=== PATIENT | female | born 1940 ===

== ENCOUNTER 2022-01-02 09:50 | Outpatient (CLI) | payer MEDICARE, OTHER ==
[2022-01-02] MEDS ORDERED: lidocaine 1% 20 ML MDV ONE (10:07)
[2022-01-02] MEDS ORDERED: LIDOCAINE 1%-EPI 1:100000 20 ML MDV ONE (10:08)
--- NOTE | 2022-01-02 17:35 | Ultrasound Report ---
LIMITED ULTRASOUND OF RIGHT BREAST: 01/02/2022 CLINICAL: Patient returns today to evaluate a density in the right breast. Comparison is made to exams dated: 10/25/2021 mammogram, 10/25/2021 ultrasound, 10/11/2021 mammogram, mammogram, and 12/02/2014 mammogram - [facility]. Color flow ultrasound of the right breast 10 o'clock region was performed. Ty scale images of the real-time examination were reviewed. There is a 1.1 cm x 1.1 cm x 0.7 cm area of subtle shadowing in the right breast at 11 o'clock beef boner ior depth 3 cm from the nipple. IMPRESSION: PROBABLY BENIGN No shadowing in the area of previously described mass as seen on prior ultrasound, no significant abn ormality is identified. There is an area of subtle shadowing which does not appear masslike and is le ss conspicuous and smaller compared to the prior outside ultrasound. Given the lack of a target, ultr asound-guided biopsy will not be performed. I discussed the findings with the patient and she will re turn in 6 months for repeat ultrasound and also will return if she notices any palpable abnormality i n the interim. A follow-up right ultrasound in 6 months is recommended to demonstrate stability. This exam was interpreted at Station ID: [id number]. Electronically Signed By: Romain Walker acr/:01/02/2022 12:03:16 Ultrasound BI-RADS: 3 Probably benign BI-RADS CATEGORY: (3) - 3 Ultrasound [id number] 6 month follow-up LATERALITY: (R)
== END 2022-01-02 09:51 | disposition home or self-care (01) ==
LOC: DI 09:50
PROVIDERS: ATTEND Nurse Practitioner Obstetrics & Gynecology
DX: R92.8 Other abnormal and inconclusive findings on diagnostic imaging of breast (principal)

== ENCOUNTER 2022-08-20 08:44 | Outpatient (CLI) | payer MEDICARE, OTHER ==
--- NOTE | 2022-08-21 14:10 | Ultrasound Report ---
LIMITED ULTRASOUND OF RIGHT BREAST: 08/20/2022 CLINICAL: Patient returns for a 6 month follow up of the right breast. Comparison is made to exams dated: 01/02/2022 ultrasound - [facility], 10/25/2021 ma mmogram, 10/25/2021 ultrasound, 10/11/2021 mammogram, 01/21/2019 mammogram, and 12/02/2014 mammogram - [facility]. Color flow ultrasound of the right breast 10 o'clock region was performed. Ty scale images of the real-time examination were reviewed. Previously described hypoechoic ill define area is unchanged from prior study. No associated shadowin g or increased vascularity. IMPRESSION: INCOMPLETE: NEEDS ADDITIONAL IMAGING EVALUATION Previously described area of hypoechoic tissue in the right breast without shadowing or increased vas cularity is unchanged. It is recommended that the patient undergo a follow-up mammogram at this time in order to evaluate the area of architectural distortion seen on most recent mammographic studies. This exam was interpreted at Station ID: [id number]. Electronically Signed By: Rajan Skelton M.D. jr/:08/20/2022 13:48:39 Ultrasound BI-RADS: 0 Indeterminate BI-RADS CATEGORY: (0) - 0 RECOMMENDATION: (ADDMAM) - Recommend additional mammographic views. [id number] Immediate follow-up LATERALITY: (B)
== END 2022-08-20 08:45 | disposition home or self-care (01) ==
LOC: DI 08:44
PROVIDERS: ATTEND Nurse Practitioner Obstetrics & Gynecology
DX: R92.8 Other abnormal and inconclusive findings on diagnostic imaging of breast (principal)

== ENCOUNTER 2022-10-23 10:50 | Outpatient (CLI) | payer MEDICARE, OTHER ==
--- NOTE | 2022-10-24 09:32 | Mammography Report ---
BILATERAL DIGITAL DIAGNOSTIC MAMMOGRAM 3D/2D: 10/23/2022 CLINICAL: Short term follow up of the right breast, due for bilateral imaging. Comparison is made to exams dated: 08/20/2022 ultrasound, 01/02/20[address] ultrasound - [facility], 10/25/2021 mammogram, 10/11/2021 mammogram, 01/21/2019 mammogram, and 12/02/2014 mammogram - [facility]. Both breasts are heterogeneously dense, which may obscure small masses (category c / 51-75% glandular tissue). There is architectural distortion in the right breast at 12 o'clock middle depth. This is more promi nent. No other significant masses, calcifications, or other findings are seen in either breast. No clear sonographic correlate on prior imaging. IMPRESSION: SUSPICIOUS OF MALIGNANCY The architectural distortion in the right breast is at a moderate suspicion for malignancy. A stereo tactic biopsy is recommended. Based on the Tyrer Cuzick model (a risk assessment model) the patients lifetime risk is 0.4% and her 10 year risk is 0.0%. According to the ACR, ACS, and NCCN guidelines, an annual breast MRI exam slime g with mammogram is recommended if the patients lifetime risk is 20% or greater. This exam was interpreted at Station ID: [id number]. NOTE: For mammograms, a report in lay terms will be sent to the patient. Approximately 15% of breast malignancies will not be visualized mammographically. In the management of a palpable breast mass, a negative mammogram must not discourage biopsy of a clinically suspicious lesion. Electronically Signed By: Jarek Loung M.D. lc/:10/23/2022 12:04:30 ACR BI-RADS Category 4b: Suspicious abnormality - intermediate suspicion of malignancy 3344F PARENCHYMAL PATTERN: (D) - The breast(s) demonstrate(s) heterogeneously dense fibroglandular parmary kate mahmood. BI-RADS CATEGORY: (4b) - Mod Susp Biopsy follow-up [id number] Immediate follow-up LATERALITY: (B)
== END 2022-10-23 10:51 | disposition home or self-care (01) ==
LOC: DI 10:50
PROVIDERS: ATTEND Nurse Practitioner Obstetrics & Gynecology
DX: R92.8 Other abnormal and inconclusive findings on diagnostic imaging of breast (principal)

== ENCOUNTER 2023-05-28 09:16 | Outpatient (CLI) | payer MEDICARE, OTHER ==
--- NOTE | 2023-05-28 12:23 | Mammography Report ---
UNILATERAL RIGHT DIGITAL DIAGNOSTIC MAMMOGRAM 3D/2D: 05/28/2023 CLINICAL: Patient returns for a 6 month follow up of the right breast. Comparison is made to exams dated: 10/23/2022 mammogram - [facility], 10/25/2021 jesse mogram, 10/25/2021 ultrasound, 10/11/2021 mammogram, 01/21/2019 mammogram, and 12/02/2014 mammogram - [facility]. The right breast is heterogeneously dense, which may obscure small masses (category c / 51-75% glandu lar tissue). There is irregular equal density asymmetry and architectural distortion with a spiculated margin in t he right breast at 11 o'clock middle depth. This is seen in additional views. This is more prominen t. No other significant masses or calcifications are seen in the breast. IMPRESSION: INCOMPLETE: NEEDS ADDITIONAL IMAGING EVALUATION The irregular equal density architectural distortion in the right breast is suspicious, worse compare d to remote prior exams. An ultrasound is recommended. If this area is not visible by ultrasound, st ereotactic biopsy is recommended. Ultrasound was performed immediately following this exam. This exam was interpreted at Station ID: [id number]. NOTE: For mammograms, a report in lay terms will be sent to the patient. Approximately 15% of breast malignancies will not be visualized mammographically. In the management of a palpable breast mass, a negative mammogram must not discourage biopsy of a clinically suspicious lesion. Electronically Signed By: Becky carpenter/:05/28/2023 10:17:48 ACR BI-RADS Category 0: Incomplete 3340F PARENCHYMAL PATTERN: (D) - The breast(s) demonstrate(s) heterogeneously dense fibroglandular parhermilay ma. BI-RADS CATEGORY: (0) - 0 Ultrasound [id number] Immediate follow-up LATERALITY: (B)
--- NOTE | 2023-05-28 12:23 | Ultrasound Report ---
LIMITED ULTRASOUND OF RIGHT BREAST AND AXILLA: 05/28/2023 CLINICAL: Patient returns today to evaluate an architectural distortion in the right breast. Comparison is made to exams dated: 10/23/2022 mammogram, 08/20/20[address] ultrasound - [facility], 10/25/2021 mammogram - [facility], and 01/02/2022 ultrasound - [facility]. Color flow ultrasound of the right breast 10-11 o'clock, and axilla regions was performed. Ty scal e images of the real-time examination were reviewed. There is a 0.7 cm x 0.7 cm x 0.6 cm irregular mass with an indistinct, angular, and spiculated margin in the right breast at 10 o'clock middle depth 5 cm from the nipple. This irregular mass is hypoech oic with posterior acoustic shadowing. This abnormality is increased in size and correlates with jesse mography findings. It is palpable per technologist. Color flow imaging demonstrates that there is no vascularity present. No significant abnormalities were seen sonographically in the right axilla. IMPRESSION: SUSPICIOUS OF MALIGNANCY The 0.7 cm x 0.7 cm x 0.6 cm irregular mass in the right breast corresponds to the mammogram finding, and is at a high suspicion for malignancy. An ultrasound guided biopsy is recommended. Findings an d recommendations were discussed with the patient in person by Dr. Sinan Martinez at time of exam. This exam was interpreted at Station ID: [id number]. Electronically Signed By: Becky carpenter/:05/28/2023 10:46:12 Ultrasound BI-RADS: 4c High suspicion of malignancy BI-RADS CATEGORY: (4c) - High Susp Biopsy [id number] Immediate follow-up LATERALITY: (R)
== END 2023-05-28 09:17 | disposition home or self-care (01) ==
LOC: DI 09:16
PROVIDERS: ATTEND Internal Medicine
DX: N63.11 Unspecified lump in the right breast, upper outer quadrant (principal)

== ENCOUNTER 2023-07-14 12:25 | Outpatient (CLI) | payer MEDICARE, OTHER ==
[2023-07-14] MEDS ORDERED: LIDOCAINE-MPF 1% 5 ML VIAL ONE (12:28)
[2023-07-14] MEDS ORDERED: LIDOCAINE 1%-EPI 1:100000 50 ML VIAL ONE (12:29)
[2023-07-14] MEDS ORDERED: LIDOCAINE-MPF 1% 5 ML VIAL TD ONE (14:02)
[2023-07-14] MEDS ORDERED: LIDOCAINE 1%-EPI 1:100000 50 ML VIAL SUBQ ONE (15:00)
--- NOTE | 2023-07-15 12:19 | Mammography Report ---
UNILATERAL RIGHT DIGITAL DIAGNOSTIC MAMMOGRAM POST-PROCEDURE IMAGING FOR MARKER PLACEMENT: 07/14/2023 CLINICAL: Post right breast ultrasound biopsy clip placement imaging. Comparison is made to exams dated: 05/28/2023 mammogram, 10/23/2022 mammogram - [facility], 10/25/2021 mammogram, 10/11/2021 mammogram, 01/21/2019 mammogram, and 12/02/2014 mammogram - [facility]. The right breast is heterogeneously dense, which may obscure small masses (category c / 51-75% glandu lar tissue). There is a marker clip in the appropriate position in the right breast at 11 o'clock middle depth. T his marker clip placement is at the biopsy site. IMPRESSION: POST PROCEDURE MAMMOGRAM FOR MARKER PLACEMENT There was a successful marker clip placement in the right breast middle depth. This exam was interpreted at Station ID: [id number]. NOTE: For mammograms, a report in lay terms will be sent to the patient. Approximately 15% of breast malignancies will not be visualized mammographically. In the management of a palpable breast mass, a negative mammogram must not discourage biopsy of a clinically suspicious lesion. Electronically Signed By: Sinan vega/penrad:07/14/2023 16:51:24 ACR BI-RADS Category Post-procedure mammogram for marker placement PARENCHYMAL PATTERN: (D) - The breast(s) demonstrate(s) heterogeneously dense fibroglandular parhermilay ma. BI-RADS CATEGORY: () - RECOMMENDATION: (ADDMAM) - Recommend additional mammographic views. recall n/a LATERALITY: (B)
--- NOTE | 2023-07-16 09:41 | Ultrasound Report ---
ULTRASOUND GUIDED BIOPSY RIGHT BREAST USING VACUUM DEVICE WITH MARKING DEVICE INSERTED AND POST MAMMO GRAPHIC IMAGIN07/14/2023 CLINICAL: Right breast mass. PATIENT CONSENT: Risks (minor bleeding, infection, vasovagal reaction and repeat procedure), benefits and alternatives were explained to the patient and written informed consent was obtained. Correlation is made to exams dated: 05/28/2023 ultrasound, 05/28/2023 mammogram, 10/23/2022 mammogram , 08/20/2022 ultrasound, 01/02/2022 ultrasound - [facility], and 10/25/2021 mammogram - [facility]. An ultrasound guided biopsy using real-time ultrasound was performed for the mass located in the righ t breast at 10 o'clock, 5 cm from the nipple. The skin was prepped in the usual manner. Local anest hetic was administered to the access site. A skin arabella was made in the breast. The abnormality was approached from the lateral aspect. A 13 gauge biopsy needle was placed adjacent to the abnormality under ultrasound guidance. Once the needle was documented to be in the correct location, four specim ens were obtained using the Mammotome biopsy system. A clip was inserted into the biopsy cavity. A sterile dressing was applied to the access site. Post procedure mammographic imaging demonstrates th e biopsy clip at the targeted area. The specimens were sent to the laboratory for pathological duncan sis. IMPRESSION: ULTRASOUND GUIDED BIOPSY MALIGNANT Ultrasound guided biopsy of the mass in the right breast at 10 o'clock, 5 cm from the nipple was succ essful. Ultrasound guided biopsy was performed by Dr. Sinan Martinez. 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 Pathology results are concordant with imaging findings. A surgical/oncologic consultation is recommended. This exam was interpreted at Station ID: [id number]. Hortencia Murray M.D., PH.D eb/:07/16/2023 09:20:30 BI-RADS CATEGORY: () - Unspecified - other recall n/a LATERALITY: (B)
== END 2023-07-14 12:26 | disposition home or self-care (01) ==
LOC: DI 12:25
PROVIDERS: ATTEND Internal Medicine
DX: C50.411 Malignant neoplasm of upper-outer quadrant of right female breast (principal); Z17.0 Estrogen receptor positive status [ER+]
CPT/HCPCS: 19083; 77065; J3490

== ENCOUNTER 2023-11-03 08:10 | Day surgery (SDC) | payer MEDICARE, OTHER ==
[2023-11-03] MEDS ORDERED: ceFAZolin 2 GM VIAL ONE (08:33)
[2023-11-03] MEDS: ALPRAZolam 0.25 MG TABLET PO ONE (08:35)
[2023-11-03] MEDS: ACETAMINOPHEN 500 MG TABLET PO ONE (08:35)
[2023-11-03] MEDS: LACTATED RINGERS 1,000 ML IV ONE (08:40)
[2023-11-03] MEDS ORDERED: LIDOCAINE-MPF 1% 5 ML VIAL ONE (09:16)
[2023-11-03] MEDS ORDERED: LIDOCAINE 1%-EPI 1:100000 20 ML MDV ONE ×2 (09:17→10:08)
[2023-11-03] MEDS ORDERED: BUPIVACAINE 0.5% PF 10 ML VIAL ONE (10:08)
[2023-11-03] MEDS ORDERED: NALOXONE 0.4 MG/ML VIAL IVP PRN (10:23)
[2023-11-03] MEDS ORDERED: ePHEDrine 50 MG/ML VIAL IVP PRN (10:23)
[2023-11-03] MEDS ORDERED: fentaNYL 100 MCG/2 ML VIAL IVP PRN (10:23)
[2023-11-03] MEDS ORDERED: HYDROmorphone 0.5 MG/0.5 ML SYRINGE IVP PRN ×2 (10:23→14:24)
[2023-11-03] MEDS ORDERED: ATROPINE ABBOJECT 1 MG/10 ML SYRINGE IVP PRN (10:23)
[2023-11-03] MEDS ORDERED: METOCLOPRAMIDE 10 MG/2 ML VIAL IVP PRN (10:23)
[2023-11-03] MEDS ORDERED: MORPHINE 2 MG/ML CARPUJECT IVP PRN (10:23)
[2023-11-03] MEDS ORDERED: ONDANSETRON 4 MG/2 ML VIAL IVP PRN ×2 (10:23→14:24)
--- NOTE | 2023-11-03 10:23 | ANESTHESIA ---
Pre-Anesthesia VS, & Labs - Diagnosis IDC - Procedure wire loc, excision of IDC Vital Signs: Temp Pulse Resp BP Pulse Ox O2 Flow Rate 36.7 C 88 18 176/80 H 99 11/03/23 08:42 11/03/23 08:42 11/03/23 08:42 11/03/23 08:42 11/03/23 08:42 Height: 5 ft 3 in Weight (kg): 68.04 kg Body Mass Index: 26.5 BMI Classification: Overweight - NPO >8 hours - Is Patient ?: No Home Medications and Allergies Home Medications: Ambulatory Orders No Known Home Medications 10/27/23 No Known Home Medications 10/27/23 Allergies/Adverse Reactions: Allergies Allergy/AdvReac Type Severity Reaction Status Date / Time No Known Drug Allergies Allergy Verified 11/03/23 09:06 Anes History & Medical History - Anesthetic History Anesthesia Complications: reports: No previous complications Family history of Anesthesia Complications: Denies Family history of Malignant Hyperthermia: Denies - Medical History Cardiovascular: reports: None Pulmonary: reports: None Gastrointestinal: reports: None Urinary: reports: None Musculoskeletal: reports: Osteoarthritis Psychosocial: reports: No issues indicated History of Cancer?: Yes Exam General: Alert, Oriented x3, Cooperative Dental: WNL Mouth Openin Fingerbreadth Neck Mobility: Normal Mallampati classification: II Thyromental Distance: 4-6 cm Respiratory: Lungs clear Cardiovascular: Regular rate Plan Anesthesia Type: General Consent for Procedure(s) Verified and Reviewed: Yes Code Status: Attempt Resuscitation ASA classification: 3-Severe systemic disease Is this case an emergency?: No
[2023-11-03] MEDS ORDERED: LACTATED RINGERS 1,000 ML IV SCH (11:00)
[2023-11-03] MEDS ORDERED: PROPOFOL 200 MG/20 ML VIAL IVP ONE (12:06)
[2023-11-03] MEDS ORDERED: LIDOCAINE-PF 2% 10 ML AMP SUBQ ONE (12:06)
[2023-11-03] MEDS ORDERED: fentaNYL 100 MCG/2 ML VIAL ONE (12:06)
[2023-11-03] MEDS ORDERED: MIDAZOLAM 2 MG/2 ML VIAL ONE (12:06)
[2023-11-03] MEDS ORDERED: DEXAMETHASONE 4 MG/ML VIAL ONE (12:07)
[2023-11-03] MEDS: LIDOCAINE-MPF 1% 5 ML VIAL TD ONE (12:14)
[2023-11-03] MEDS ORDERED: ePHEDrine 50 MG/ML VIAL IVP ONE (12:59)
[2023-11-03] MEDS: BUPIVACAINE 0.5% PF 30 ML VIAL INFIL ONE ×2 (13:41)
[2023-11-03] MEDS: LIDOCAINE 1%-EPI 1:100000 50 ML VIAL SUBQ ONE ×2 (13:41)
[2023-11-03] MEDS: LACTATED RINGERS 100 ML IV ONE (14:08)
[2023-11-03] MEDS ORDERED: IBUPROFEN 400 MG TABLET PO PRN (14:24)
[2023-11-03] MEDS ORDERED: oxyCODONE 5 MG TABLET PO PRN (14:24)
[2023-11-03] MEDS ORDERED: ACETAMINOPHEN 500 MG TABLET PO PRN (14:24)
--- NOTE | 2023-11-03 14:28 | OPERATIVE REPORT ---
Operative Report - General Procedure Date: 11/03/23 Planned Procedure: wire localized right breast lumpectomy Pre-Op Diagnosis: invasive ductal carcinoma Procedure Performed: wire localized right breast lumpectomy Post Op Diagnosis: invasive ductal carcinoma - Procedure Note Primary Surgeon: Kenyatta Pedroza MD Anesthesia Provider: Jen Sommer CRNA Anesthesia Technique: General LMA, Local Pathology: 1. right breast lumpectomy 2. additional posterior margin 3. additional lateral margin Estimated Blood Loss (mL): 10 Indications: The patient had an abnormal mammogram and subsequent biopsy revealing invasive ductal carcinoma of the right breast. She had not noted a palpable mass or any changes in her breast. The patient was seen and evaluated in the clinic where we discussed the risks, benefits, and alternatives of lumpectomy versus ma stectomy. As the mass is small and not palpable, I recommended wire localized lumpectomy. Risks include but are not limited to bleeding, infection, damage to surrounding structures, numbness in the area, and the need for further surgeries or procedures. The patient voiced understanding, her questions were answered, and she wished to proceed. A consent was signed by the patient prior to surgery . Findings: 1.Right lumpectomy, oriented short superior, long lateral, double anterior 2. Additional deep margin oriented short superior, long lateral, double anterior 3. Additional lateral margin oriented short superior, long lateral, double anterior Complications: None - Other Other Information/Narrative: The patient was taken to the operating room and placed in the supine position. Preop antibiotics were given. ERAS medications were given. The patient was prepped and draped in the usual sterile fashion. A preop surgical timeout was performed. Attention was turned to the patient's right breast. An incision was made which incorporated the wire, following the patient's skin folds, at the 9 o'clock position. Skin flaps were raised superiorly and inferiorly to the incision. The dissection was carried down to the thick part of the wire using electrocautery. At this point, serrated scissors were used to perform a lumpectomy staying approximately 1 cm away from the wire in all dimensions, except for the medial and inferior positions where I stayed 1.5 cm away from the wire. The specimen was removed and palpated. A hard, palpable mass was felt to be close to the deep and lateral margins. The lumpectomy specimen was removed and oriented with suture on the back table. The specimen was sent to mammography and the biopsy clip was confirmed to be within the specimen.The edges of the lumpectomy cavity were inspected and there were no palpable abnormalities, however based on palpation of the lumpectomy I did remove additional posterior and lateral margins. Each specimen was oriented on the back table before sending to pathology. Hemostasis was confirmed. The lumpectomy cavity was irrigated with warm normal saline. Clips were placed in the superior, inferior, medial, lateral, anterior, and posterior margins of the lumpectomy cavity. The deep dermal tissues were closed with 3-0 Vicryl in an interrupted fashion. The skin was closed with 4-0 Monocryl in a running subcuticular fashion. A sterile dressing of skin glue was placed. All sponge and needle counts were correct at the end of the case. The patient tolerated the procedure well. There were no complications. Synoptic Breast SNB - [place] Node Biopsy Operation performed with curative intent: Yes Tracer(s) used to identify sentinel nodes in the upfront surgery (non- neoadjuvant) setting (select all that apply): N/A (No sentinel lymph node biopsy was done to the due to the patient's age, and the small size of the tumor. [place] lymph node biopsy was felt unnecessary as it is unlikely to change her course of treatment.) Tracer(s) used to identify sentinel nodes in the neoadjuvant setting (select all that apply): N/A All nodes (colored or non-colored) present at the end of a dye-filled lymphatic channel were removed: N/A All significantly radioactive nodes were removed: N/A All palpably suspicious nodes were removed: N/A Biopsy-proven positive nodes marked with clips prior to chemotherapy were identified and removed: N/A
[2023-11-03 15:30] VITALS: BP 128/69; O2SAT 96
--- NOTE | 2023-11-03 15:40 | ANESTHESIA POST OP EVALUATION ---
Anesthesia Post Eval - Post Anesthesia Eval Vitals: Last Vital Signs Temp 36.8 C 11/03/23 15:15 Pulse 102 H 11/03/23 15:15 Resp 16 11/03/23 15:15 BP 128/69 11/03/23 15:15 Pulse Ox 96 11/03/23 15:15 O2 Flow Rate CV Function Including HR & BP: Stable Pain Control: Satisfactory Nausea & Vomiting: Negative Mental Status: Baseline Respiratory Status: Airway Patent Hydration Status: Satisfactory Anesthesia Complications: None
--- NOTE | 2023-11-04 10:17 | Mammography Report ---
UNILATERAL RIGHT DIGITAL DIAGNOSTIC MAMMOGRAM: 11/03/2023 CLINICAL: Right wire placement. Comparison is made to exams dated: 07/14/2023 mammogram, 07/14/2023 ultrasound biopsy, 05/28/2023 mamm ogram, and 10/23/2022 mammogram - [facility]. The right breast is heterogeneously dense, which may obscure small masses (category c / 51-75% glandu lar tissue). Adequate positioning of the wire adjacent to the 11:00 right breast mass with clip. IMPRESSION: KNOWN BIOPSY PROVEN MALIGNANCY Adequate positioning of the wire adjacent to the 11:00 right breast mass with clip. This exam was interpreted at Station ID: [id number]. NOTE: For mammograms, a report in lay terms will be sent to the patient. Approximately 15% of breast malignancies will not be visualized mammographically. In the management of a palpable breast mass, a negative mammogram must not discourage biopsy of a clinically suspicious lesion. Electronically Signed By: Jarek Luong M.D. lc/:11/03/2023 14:57:13 ACR BI-RADS Category 6: Known biopsy proven malignancy 3346F PARENCHYMAL PATTERN: (D) - The breast(s) demonstrate(s) heterogeneously dense fibroglandular parenchy ma. BI-RADS CATEGORY: (6) - 6 Unspecified - other recall n/a LATERALITY: (B)
--- NOTE | 2023-11-04 10:18 | Ultrasound Report ---
NEEDLE LOCALIZATION: 11/03/2023 CLINICAL: Right breast wire localization at 10-11:00 5 CFN. Correlation is made to exams dated: 07/14/2023 mammogram, 07/14/2023 ultrasound biopsy, 05/28/2023 ult rasound, and 05/28/2023 mammogram - [facility]. Successful US-guided wire localization of the right breast mass at 10-11:00 IMPRESSION: NEEDLE LOCALIZATION Successful US-guided wire localization of the right breast mass at 10-11:00 This exam was interpreted at Station ID: [id number]. Jarek Luong M.D. lc/:11/03/2023 14:56:16 BI-RADS CATEGORY: () - Unspecified - other recall n/a LATERALITY: (B)
--- NOTE | 2023-11-04 10:18 | Mammography Report ---
SPECIMEN: 11/03/2023 CLINICAL: Right breast specimen. Correlation is made to exam dated: 11/03/2023 localization - [facility]. Specimen contains the wire with the tip and clip. IMPRESSION: SPECIMEN Specimen contains the wire with the tip and clip. This exam was interpreted at Station ID: [id number]. Jarek Luong M.D. lc/:11/03/2023 14:58:05 BI-RADS CATEGORY: () - Unspecified - other recall n/a LATERALITY: (B)
== END 2023-11-03 08:11 | disposition home or self-care (01) ==
LOC: DI 08:10
PROVIDERS: ATTEND Surgery
PROC: 0HBT0ZZ Excision of Right Breast, Open Approach (ICD-10-PCS; principal; 2023-11-03 11:00)
DX: C50.411 Malignant neoplasm of upper-outer quadrant of right female breast (principal); Z17.0 Estrogen receptor positive status [ER+]
CPT/HCPCS: 19285